=== PATIENT | male | born 1975 | race Asian ===

== ENCOUNTER 2016-07-02 04:53 | Emergency (ER) | payer BC ==
[~2016-07-02] VITALS: Wt 83.0 kg
--- NOTE | 2016-07-02 17:42 | ERD ---
ER Documentation Chief Complaint Date/Time DATE: 07/02/16 TIME: 17:28 Chief Complaint mouth sores today HPI Patient is a 41-year-old male who presents to the emergency department with concerns of "mouth sores", lip discoloration and increase in his smile width which started today. Patient stated that he has been undergoing treatment for fungal infection on his body. Patient states that he's been taking fluconazole tabs for the last 4 days and using ketoconazole shampoo. Patient states this morning he woke up feeling a stinging pain in his mouth and in his lips. He states that he noticed around 2 AM that he had "a joker smile." Patient states that his lips have been "increasing in size on the sides" and he has never noticed this before. Patient denies any lip swelling, tongue swelling, shortness of breath, chest pain. He is concerned that he may have a fungal infection in his lips now. Patient states that he went to [facility] earlier this morning, and he was given Benadryl and a steroid shot. Patient states that he is here because he "does not trust that the other doctor did." Patient denies any nausea, vomiting, lightheadedness or loss of consciousness. Patient is a smoker. ROS All systems reviewed and are negative except as per history of present illness. PMhx/Soc Medical and Surgical Hx: pt denies Medical Hx, pt denies Surgical Hx History of Surgery: No Anesthesia Reaction: No Hx Neurological Disorder: No Hx Respiratory Disorders: No Hx Cardiac Disorders: No Hx Miscellaneous Medical Probl: Yes (fungal infection) Hx Alcohol Use: No Hx Substance Use: No Hx Tobacco Use: Yes Smoking Status: Current every day smoker FmHx Family History: No diabetes Physical Exam Vitals Vital Signs Date Time Temp Pulse Resp B/P Pulse Ox O2 Delivery O2 Flow Rate FiO2 07/02/16 05:27 98.3 84 18 136/84 95 Physical Exam GENERAL: Well-developed, well-nourished male. Appears in no acute distress. Speaking in full sentences. HEAD: Normocephalic, atraumatic. EYES: Pupils are equally reactive bilaterally. EOMs grossly intact. No conjunctival erythema. ENT: External ear without any masses or tenderness. Auditory canals clear bilaterally. No hemotympanium. TM visualized bilaterally, non-erythematous, non- bulging. Nasal septum midline. Nasal mucosa pink with no discharge. Turbinates normal. Oropharynx is pink without any tonsillar erythema or exudates. Good dentition. Gums without bleeding or edema. Sinuses non-tender to palpation. No lip swelling, no tongue swelling, no tonsillar swelling. No oral lesions or ulcers noted on buccal regions, tongue. Lips appear slightly darker in color, consistent with smoking history. NECK: Supple. No lymphadenopathy or thyromegaly. No meningismus. No hyperextension of the neck. Normal range of motion of the neck. LUNG: Clear to auscultation bilaterally. No rhonchi, wheezing, rales or coarse breath sounds. HEART: Regular rate and rhythm. No murmurs, rubs or gallops. EXTREMITIES: Equal pulses bilaterally. No peripheral clubbing, cyanosis or edema. No unilateral leg swelling. NEUROLOGIC: Alert and oriented. Moving all four extremities without any difficulty. Normal speech. Steady gait. SKIN: Normal color. Warm and dry. No rashes or lesions noted throughout the patient's body. No erythema or lymphatic streaking was noted throughout the body. PSYCH: appears anxious and paranoid (repeatedly asking for additional examinations of non-exist rash on body) Of note, the patient repeatedly argued that he had lesions on his body and wished for me to re-examine him. At numerous occasions, no lesions or rashes or infections were noted. Dr. Ellington also examined the patient and found no signs of rashes or infections. Procedures/MDM MEDICAL DECISION MAKING: This is a 41-year-old male who presents with concerns of mouth sores, lip discoloration and widening of his smile. Patient is currently being treated for a fungal infection of his body and states "he feels that the fungal infection is now on his lips". Skin exam revealed no signs of rashes or infection despite the fact that the patient continued to state that he saw lesions on his body. Vital signs were reviewed. Patient was afebrile. Patient was noted hypoxic. Patient denied any lip swelling, tongue swelling or SOB. Given these findings, the patients presentation is most consistent improved fungal infection vs paranoia. I have a much lower clinical concern for necrotizing fasciitis, sepsis, gangrene, Frantz-Jerod syndrome, toxic epidural necrolysis , abscess, cellulitis, herpes zoster, viral exanthem, anaphylaxis, allergic reaction, impetigo. Patient appears to be displaying paranoia-like behavior, repeatedly asking to be examined to by numerous providers despite that fact that the patient has no lesions and/or rashes that not were visualized by myself , nursing staff or Dr. Ellington. Patient's darkening of his lips may be consistent with long-term smoking history. My supervising physician, Dr. Ellington, examined the patient with me. Dr. Ellington, agreed that patient has no current signs of a fungal infection, rashes or mouth sores. Dr. Ellington advised the patient that he will need to follow-up with his primary care physician and or a warper tender for further workup of his symptoms and concerns. At this time, the patient displays no signs of emergent or urgent danger. DISCHARGE: At this time, patient is stable for discharge and outpatient management. I have advised the patient to avoid any new products, creams or possible allergens. I have advised the patient to avoid scratching the lesions. I have instructed the patient to follow-up with his/her primary care physician in 1-2 days. If symptoms persist, patient may need to see a warper tender for further examinations and testing. I have instructed the patient to promptly return to the ER at any time for any new or worsening symptoms including increased pain, fever, redness, swelling, warmth, difficulty breathing or vomiting. The patient and/or family expressed understanding of and agreement with this plan. All questions were answered. Home care instructions were provided. Departure Diagnosis: Primary Impression: Mouth symptom Condition: Stable Patient Instructions: Fungal Infection, Skin [General] Referrals: TERESSA TOMAS MD,MARQUISE AVILEZ MD, MICHAEL T. MD [facility] YOU HAVE RECEIVED A MEDICAL SCREENING EXAM AND THE RESULTS INDICATE THAT YOU DO NOT HAVE A CONDITION THAT REQUIRES URGENT TREATMENT IN THE EMERGENCY DEPARTMENT. FURTHER EVALUATION AND TREATMENT OF YOUR CONDITION CAN WAIT UNTIL YOU ARE SEEN IN YOUR DOCTORS OFFICE WITHIN THE NEXT 1-2 DAYS. IT IS YOUR RESPONSIBILITY TO MAKE AN APPOINTMENT FOR FOL- CARE. IF YOU HAVE A PRIMARY DOCTOR --you should call your primary doctor and schedule an appointment IF YOU DO NOT HAVE A PRIMARY DOCTOR YOU CAN CALL OUR PHYSICIAN REFERRAL HOTLINE AT IF YOU CAN NOT AFFORD TO SEE A PHYSICIAN YOU CAN CHOSE FROM THE FOLLOWING [facility] [address] [facility]. [facility] [address] [facility] [address] [facility] [address] [facility] [address] [facility]. [facility]. [address] [facility]. [facility] YOU HAVE RECEIVED A MEDICAL SCREENING EXAM AND THE RESULTS INDICATE THAT YOU DO NOT HAVE A CONDITION THAT REQUIRES URGENT TREATMENT IN THE EMERGENCY DEPARTMENT. FURTHER EVALUATION AND TREATMENT OF YOUR CONDITION CAN WAIT UNTIL YOU ARE SEEN IN YOUR DOCTORS OFFICE WITHIN THE NEXT 1-2 DAYS. IT IS YOUR RESPONSIBILITY TO MAKE AN APPOINTMENT FOR FOLOW-UP CARE. IF YOU HAVE A PRIMARY DOCTOR --you should call your primary doctor and schedule and appointment IF YOU DO NOT HAVE A PRIMARY DOCTOR YOU CAN CALL OUR PHYSICIAN REFERRAL HOTLINE AT . IF YOU CAN NOT AFFORD TO SEE A PHYSICIAN YOU CAN CHOSE FROM THE FOLLOWING [facility] INSTITUTIONS: [facility] [address] [place] [address] [facility] [address] [place] [address] [facility] [address] [place] [address] Additional Instructions: Call your primary care doctor TOMORROW for an appointment during the next 1-2 days.See the doctor sooner or return here if your condition worsens before your appointment time. AMAN MATTHEWS PA-C Jul 02, 2016 17:38 AMAN MATTHEWS PA-C Jul 02, 2016 17:38
== END 2016-07-02 07:01 | disposition home or self-care (01) ==
LOC: FTE 04:53
DX: K13.79 Other lesions of oral mucosa (principal); F17.210 Nicotine dependence, cigarettes, uncomplicated
CPT/HCPCS: 99282